=== PATIENT | female | born 1975 | race African-American/Black ===

== ENCOUNTER 2020-07-23 15:00 | Emergency (ER) | payer MEDICAID ==
[~2020-07-23] VITALS: Ht 172.7 cm; Wt 75.0 kg
[2020-07-23] MEDS ORDERED: KETOROLAC 60MG/2ML VIAL IM STA (16:31)
[2020-07-23] MEDS ORDERED: IBUP-2029 MT (17:58)
[2020-07-23] MEDS ORDERED: CYCL10TA7 MT (17:58)
[2020-07-23 18:24] VITALS: BP 149/90
== END 2020-07-23 18:24 | disposition home or self-care (01) ==
LOC: ER 15:00
DX: S30.0XXA Contusion of lower back and pelvis, initial encounter (principal); R03.0 Elevated blood-pressure reading, without diagnosis of hypertension; V43.52XA Car driver injured in collision with other type car in traffic accident, initial encounter; Y93.89 Activity, other specified; Y92.488 Other paved roadways as the place of occurrence of the external cause
CPT/HCPCS: 72100; 96372; 99283; J1885